=== PATIENT | male | born 1980 | race Caucasian/White ===

== ENCOUNTER 2018-06-28 18:34 | Emergency (ER) | payer OTHER ==
[~2018-06-28] VITALS: Ht 180.3 cm; Wt 77.3 kg
[~2018-06-28 18:34] MED LIST: AUGMENTIN875 MG PO
[2018-06-28 20:22] VITALS: BP 130/92
== END 2018-06-28 20:22 | disposition home or self-care (01) ==
LOC: EME 18:34 → EXP 18:34
DX: S81.012A Laceration without foreign body, left knee, initial encounter (principal); W17.81XA Fall down embankment (hill), initial encounter; W26.8XXA Contact with other sharp object(s), not elsewhere classified, initial encounter; Y99.0 Civilian activity done for income or pay; Z23 Encounter for immunization
CPT/HCPCS: 99281; 99284